=== PATIENT | male | born 1970 | race Two or more races ===

== ENCOUNTER → 2020-01-17 | Day surgery (SDC) | payer BC ==
[2020-01-10 11:00] LABS: Basophils # (auto) 0.2 10 ^3/uL (0-0.2); Basophils % (auto) 0.9 % (0.0-2.0); Eosinophils # (auto) 0.3 10 ^3/uL (0-0.8); Eosinophils % (auto) 1.9 % (0.0-7.0); Hematocrit 47.1 % (41.0-53.0); Hemoglobin 15.5 g/dL (13.5-17.5); Lymphocytes # (auto) 4.8 10 ^3/uL (0.4-5.4); Lymphocytes % (auto) 29.1 % (10.0-50.0); Mean Corpuscular Hemoglobin 29.2 pg (28.0-32.0); Mean Corpuscular Volume 88.6 fL (80.0-100.0); Monocytes # (auto) 0.9 10 ^3/uL (0-1.3); Monocytes % (auto) 5.8 % (0.0-12.0); Neutrophils # (auto) 10.2 10 ^3/uL (1.6-8.6); Neutrophils % (auto) 62.3 % (37.0-80.0); Platelet Count (auto) 409 10^3/uL (140-450); Red Blood Cells 5.32 10^6/uL (4.5-5.90); Red Cell Distribution Width 14.1 % (11.8-14.3); White Blood Cell 16.3 10^3/uL (4.4-10.8)
[2020-01-10 11:07] LABS: Albumin 3.7 g/dL (3.4-5.0); Potassium 4.7 mmol/L (3.5-5.1)
[2020-01-10 11:11] LABS: BUN/Creatinine Ratio 6.4; Bilirubin, Total 0.4 mg/dL (0.2-1.0); Total Protein 7.5 g/dL (6.4-8.2)
[2020-01-10 11:35] LABS: Urine Bacteria NONE SEEN /hpf (None Seen); Urine Blood Negative /uL (Negative); Urine Specific Gravity 1.006 (1.001-1.035); Urine WBC 1 /hpf (0 - 3)
[2020-01-10 11:41] LABS: INR 0.93 (0.9-1.15); Partial Thromboplastin Time 27.7 sec (23.0-31.2)
[~2020-01-17] VITALS: Ht 175.3 cm; Wt 77.1 kg
[~2020-01-17] MED LIST: BUPIVACAINE 0.25% INJ 50ML VIAL ONE; HYDROmorphone HCL 2 MG/ML VL IV PRN; KETOROLAC TROMETH 30 MG/ML 1ML VIAL ONE; LIDOCAINE 1% (LOCAL ANESTH.) PF 5ml SDV ONE; LIDOCAINE 1% HCL (LOCAL ANESTH.) INJ 20ML MDV ONE; METOCLOPRAMIDE HCL 5MG/ml INJ 2ml VIAL ONE; MIDAZOLAM HCL 1MG/1ML-2 ML VIAL ONE; NALOXONE HCL 0.4 MG/ML VIAL IV PRN; ONDANSETRON HCL 4 MG/2 ML VIAL IV PRN; PROPOFOL 10 MG/ML 20 ML IV ONE; ROCURONIUM 10MG/ML 10ML VIAL IV ONE; SUCCINYLCHOLINE CHLORIDE 20 MG/ML 10ML VIAL IV ONE; ceFAZolin 1GM/50ML 100 ML IV ONE; fentaNYL CITRATE 100 MCG/2 ML VL ONE
[2020-01-17 11:29] VITALS: BP 137/87
== END | disposition home or self-care (01) ==
LOC: SUR 06:55
PROVIDERS: ATTEND Orthopaedic Surgery Hand Surgery
DX: M20.012 Mallet finger of left finger(s) (principal); K21.9 Gastro-esophageal reflux disease without esophagitis; Z98.890 Other specified postprocedural states; Z79.899 Other long term (current) drug therapy; Z20.828 Contact with and (suspected) exposure to other viral communicable diseases
CPT/HCPCS: 26418; 26432; 36415; 73140; 80053; 81001; 85025; 85610; 85730; J0330; J0690; J1885; J2001; J2250; J2704; J2765; J3010; J3490; U0003